=== PATIENT | female | born 1995 | race Two or more races ===

== ENCOUNTER → 2020-06-09 | Outpatient (CLI) | payer SELFPAY ==
[2020-06-13 08:29] LABS: HPV Reflexed? NOT INDICATED
== END | disposition home or self-care (01) ==
LOC: LABSPEC 13:11
PROVIDERS: Visit Provider Obstetrics & Gynecology
DX: Z12.4 Encounter for screening for malignant neoplasm of cervix (principal)
CPT/HCPCS: 88175; G0145